=== PATIENT | female | born 1990 | race American Indian/Alaskan Native ===

== ENCOUNTER 2018-02-07 22:03 | Outpatient (CLI) | payer MEDICAID ==
[2018-02-08 00:55] VITALS: BP 104/59
--- NOTE | 2018-02-09 07:17 | Event Note ---
Date: 02/08/18 Late entry for triage visit on 02/08/18: 27 year old presented to triage complaining of leaking some "water." Patient denies vaginal bleeding. She denies regular contractions or abdominal pain. She reports active movement. Patient is well appearing, A&O, NAD. Abdomen is soft and nontender. EFM shows category 1 FHR tracing and contractions are not regular. SSE performed: no pooling, no bleeding; fern test negative. SVE 2/60/-2. Patient was found not to be in active labor. Patient was discharged home; prior to discharge reviewed with patient signs of labor and warning signs of late as well as daily movement counting. Advised pt. to follow up at [facility] this week.
== END 2018-02-08 02:17 | disposition home or self-care (01) ==
LOC: TRG 22:03
PROVIDERS: ATTEND Obstetrics & Gynecology
DX: O47.03 False labor before 37 completed weeks of gestation, third trimester (principal); Z3A.37 37 weeks gestation of pregnancy
CPT/HCPCS: 59025

== ENCOUNTER 2018-02-28 07:33 | Inpatient (IN) | payer MEDICAID ==
[2018-02-28] MEDS ORDERED: XYLOCAINE 2% INFILTRATI ONE ×2 (08:33→21:31)
[2018-02-28] MEDS ORDERED: BRETHINE SUB-Q PRN (08:33)
--- NOTE | 2018-02-28 08:45 | History and Physical Report ---
History of Present Illness Date of examination: 02/28/18 Chief complaint: Regular contractions since 02:00 today. History of present illness: 27 year old female presents to L&D in active labor. Patient reports contractions since 02:00 this morning. Pt. denies leaking of fluid or vaginal bleeding. Pt. reports active movement. Patient received care at [facility]. LMP 05/22/17. EDC 02/26/18. EGA 40 weeks, 2 days gestation. has been significant for HR HPV, anemia (supplemented with iron). labs are as follows: O+, antibody screen negative, rubella immune, HIV negative, RPR nonreactive, hepatitis B surface antigen negative, chlamydia negative, gonorrhea negative, quad screen negative, herpes serology (IgM) indeterminate, 1 hour sugar test 83, GBS negative. 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 denies: chlamydia, gonorrhea, hepatitis B, hepatitis C, herpes, HIV, syphilis Family/Genetic History: none Social history: lives with family, full code. denies: smoking, alcohol abuse, prescription drug abuse, IV drug use - Obstetrical History Expected Date of Delivery: 02/26/18 Actual Gestation: 40 Week(s) 2 Day(s) : 4 Para: 1 Hx # Term Pregnancies: 2 Number of Pregnancies: 0 Spontaneous Abortions: 0 Induced : 2 Number of Living Children: 1 Medications and Allergies Allergies Allergy/AdvReac Type Severity Reaction Status Date / Time No Known Allergies Allergy Unverified 02/07/18 22:08 Active Meds: Active Medications Ephedrine Sulfate (Ephedrine Sulfate) 10 mg IV Q2M PRN PRN Reason: Hypotension Fentanyl (Sublimaze) 100 mcg IV Q2H PRN PRN Reason: Labor Pain Lactated Ringer's (Lactated Ringers) 1,000 mls @ 125 mls/hr IV DIRECT STACIA Oxytocin/Sodium Chloride (Pitocin/Ns 20 Unit/1000ml Drip) 20 units in 1,000 mls @ 125 mls/hr IV DIRECT STACIA Lidocaine (Xylocaine 2%) 20 ml INFILTRATI ONCE ONE Stop: 02/28/18 08:34 Mineral Oil (Mineral Oil) 30 ml PO QHS PRN PRN Reason: Constipation Terbutaline Sulfate (Brethine) 0.25 mg SUB-Q ONCE PRN PRN Reason: Hyperstimulation/Hypertonicity Valacyclovir HCl (Valtrex) 1,000 mg PO QDAY STACIA Review of Systems All systems: negative (contractions since 02:00 today) - Vital Signs Vital signs: Vital Signs Pulse Pulse Ox 93 H 98 02/28/18 08:06 02/28/18 08:06 Temp Pulse Resp BP Pulse Ox 124 H 108/72 99 02/28/18 08:36 02/28/18 08:07 02/28/18 08:36 - Physical Exam Cardiovascular: Regular rate, Normal S1, Normal S2 Lungs: Positive: Clear to auscultation Abdomen: Positive: normal appearance, soft. Negative: distention, tenderness, guarding, rigidity Genitourinary (Female): Positive: normal external genitalia, normal perenium. Negative: perineal/vulvar lesions Vagina: Positive: normal moisture Uterus: Positive: enlarged. Negative: tender Anus/Rectum: Positive: normal perianal skin Extremities: Positive: normal, tenderness. Negative: edema - Obstetrical FHR: category 1 Uterine Contraction Monitor Mode: External Cervical Dilatation: 5 Cervical Effacement Percentage: 70 station: -2 Uterine Contraction Pattern: Regular Uterine Contraction Intensity: Moderate Results All other labs normal. Assessment and Plan A: at 40 weeks, 2 days gestation. Active labor. GBS negative. P: Admit. Anticipate vaginal delivery.
[2018-02-28] MEDS ORDERED: PITOCin/NS 20 UNIT/1000ML DRIP 20 UNITS/1,000 ML BAG IV SCH (09:00)
[2018-02-28 09:09] LABS: Hematocrit 31.8 % (30.3-42.9); Hemoglobin 10.5 gm/dl (10.1-14.3); Mean Corpuscular HGB Conc 33 % (30-34); Mean Corpuscular Hemoglobin 28 pg (28-32); Mean Corpuscular Volume 84 fl (79-97); Platelet Count 301 K/mm3 (140-440); Red Blood Count 3.81 M/mm3 (3.65-5.03); Red Cell Distribution Width 15.5 % (13.2-15.2)
[2018-02-28] MEDS ORDERED: VALTREX PO SCH (10:00)
[2018-02-28] MEDS ORDERED: ZOFRAN IV ONE (10:13)
[2018-02-28] MEDS: SUBLIMAZE IV PRN ×2 (10:14→12:50)
[2018-02-28] MEDS: LACTATED RINGERS 1,000 ML IV SCH ×5 (10:49→20:57)
[2018-02-28] MEDS ORDERED: NACL 0.9% 1000 ML 1,000 ML ONE (16:16)
--- NOTE | 2018-02-28 16:18 | Event Note ---
Date: 02/28/18 SVE /. Patient has refused Pitocin augmentation of labor.
[2018-02-28] MEDS ORDERED: NACL 0.9% 1000 ML 1,000 ML VG SCH (17:00)
[2018-02-28] MEDS ORDERED: NARCAN 2 MG/2 ML IV PRN (17:07)
[2018-02-28] MEDS ORDERED: fentaNYL-BUPIV 2 MCG/ML-0.125% 200 MCG/100 ML BAG EPIDURAL SCH (18:00)
[2018-02-28] MEDS ORDERED: METHERGINE IM ONE ×2 (21:30→21:31)
[2018-02-28] MEDS ORDERED: CYTOTEC PR ONE (21:30)
[2018-02-28] MEDS ORDERED: CYTOTEC ONE (21:30)
[2018-02-28] MEDS ORDERED: MILK OF MAGNESIA PO PRN (21:44)
[2018-02-28] MEDS ORDERED: ZOFRAN IV PRN (21:44)
[2018-02-28] MEDS ORDERED: LANSINOH TP PRN (21:44)
[2018-02-28] MEDS ORDERED: NORCO 5/325 PO PRN (21:44)
[2018-02-28] MEDS ORDERED: DULCOLAX PR PRN (21:44)
[2018-02-28] MEDS ORDERED: TUCKS PAD TP PRN (21:44)
[2018-02-28] MEDS ORDERED: MINERAL OIL PO PRN (22:00)
[2018-02-28] MEDS ORDERED: SODIUM CHLORIDE FLUSH SYRINGE 10 ML IV NR (22:00)
--- NOTE | 2018-02-28 22:00 | Procedure Note ---
OB Delivery Note - Delivery Date of Delivery: 02/28/18 Surgeon: DANIEL LARRY Rn Psychiatric: SATISH CUELLAR Estimated blood loss: 500cc - Vaginal Delivery presentation: vertex Delivery position: OA Intrapartum events: decreased FHT variability, mult.variable deceleratio, hemorrhage Delivery induction: AROM Delivery augmentation: rupture of membranes Delivery monitor: external FHT, external uterine, internal FHT, internal uterine Route of delivery: vacuum extraction Indicators for instrumentation: maternal exhaustion Delivery placenta: spontaneous Delivery cord: 3 umbilical vessels Episiotomy: none Delivery laceration: none Anesthesia: epidural Delivery comments: Vacuum assisted vaginal delivery of liveborn female infant performed by Dr. Larry for deep variable FHR declelerations. NICU present for delilvery. Spontaneous cry and respirations. 3 vessel cord double clamped and cut. Baby taken to warmer for further evaluation by NICU team due to vacuum delivery. No lacerations noted. hemorrhage of approximately 500 ml noted. Methergine, Cytotec 800 micrograms, and fundal massage given. Bleeding slowed. Sponge count correct. Vaginal sweep negative.
[2018-02-28 22:13] LABS: Hematocrit 34.9 % (30.3-42.9); Hemoglobin 10.8 gm/dl (10.1-14.3)
[2018-02-28] MEDS ORDERED: D5LR 1,000 ML IV SCH (23:00)
[2018-02-28] MEDS ORDERED: D5LR 1,000 ML IV ONE (23:04)
[2018-02-28 23:41] LABS: Creatine Kinase MB 1.2 ng/mL (0.0-4.0)
[2018-02-28 23:42] LABS: Alanine Aminotransferase 9 units/L (7-56); Albumin 2.8 g/dL (3.9-5); BUN/Creatinine Ratio 8; Blood Urea Nitrogen 4 mg/dL (7-17); Calcium 8.3 mg/dL (8.4-10.2); Hemolysis Index 6
--- NOTE | 2018-02-28 23:45 | Event Note ---
Date: 02/28/18 About 30 minutes after delivery patient reported shortness of breath, feeling "weird," dizziness, and heart racing. Patient denied chest pain or cough. Patient had received Brethine prior to delivery; during hemorrhage patient received cytotec and Methergine. Pulse was elevated 120s-140s. BPs normal. Afebrile. Lungs CTAB. CXR, EKG, cardiac enzymes, d-dimer, thyroid labs, CMP/CBC, stat H&H done. Respiratory therapist and hospitalist to see the patient. Discussed patient's symptoms, exam findngs, and interventions taken discussed with Dr. King and with hospitalist. Hospitalist came to see/ evaluate patient. Random blood sugar was 69; juice/sprite given. Notified hospitalist's WRINGER AND SETTER of elevated d-dimer. She states she will pass ths on to hospitalist right away.
--- NOTE | 2018-03-01 02:57 | Cat Scan Report ---
FINAL REPORT EXAM: CT ANGIO CHEST HISTORY: POST WITH DYSPNEA AND TACHYCARDIA R/O PE TECHNIQUE: CT evaluations performed of the chest following IV contrast administration time for evaluation of the pulmonary arterial system. Coronal and sagittal imaging was also provided for interpretation. PRIORS: None. FINDINGS: CT evaluation of the pulmonary arterial system reveals no central filling defects. The subsegmental branches are not well opacified, specifically the left lower lobe branches. On the axial images, there are suggested filling defects in the left lower lobe, posterior medial segment (axial image 50 [id number]; coronal image 90 2-94) however there is distal opacification of the vessel and on the oblique MIPS images there is a linear, band like artifact suggested (oblique MIP image 31). Expected appearance of the breast parenchyma. The pulmonary parenchyma is without evidence of interstitial or airspace disease. The heart and great vessels,pleura and diaphragms are unremarkable. There is no evidence of mediastinal, hilar, or axillary lymphadenopathy. The visualized upper abdominal viscera and osseous structures are unremarkable. Punctate air in the thecal sac, query recent epidural. IMPRESSION: No central pulmonary emboli or acute cardiopulmonary process. Evaluation of the distal subsegmental branches is limited. Hypo attenuation in the left lower lobe pulmonary artery medial segment is felt to represent artifact.
[2018-03-01] MEDS: MOTRIN PO SCH ×5 (04:50→23:08)
[2018-03-01 10:31] LABS: Hematocrit 27.2 % (30.3-42.9); Hemoglobin 8.8 gm/dl (10.1-14.3)
--- NOTE | 2018-03-01 10:53 | Consultation ---
REQUESTING PHYSICIAN: Dr. Marianne King. HISTORY OF PRESENT ILLNESS: Very pale. REASON FOR CONSULTATION: A patient having shortness of breath and tachycardia. HISTORY OF PRESENT ILLNESS: The patient is a 27-year-old female who delivered a baby by suctioning through the vaginal delivery and some hours after delivery, the patient became tachycardic and short of breath and was evaluated by the tube mounter and the bradder and they noted that the patient's pulse was running up to 120-140 and the patient's blood pressure was about 130/70-80 and the request was for the hospitalist to see the patient after the patient was being evaluated by the tube mounter. There was no history of chest pain, no history of fever or chills; however, the patient was anxious and having some shivering. There was also no history of excessive vaginal bleeding and no history of nausea or vomiting. PAST MEDICAL HISTORY: Unremarkable. PAST SURGICAL HISTORY: Pertinent for knee surgery. FAMILY HISTORY: Noncontributory. SOCIAL HISTORY: The patient lives with family. Does not smoke, does not drink alcohol, and does not use illicit drugs. MEDICATIONS: The patient currently on admission is on IV oxytocin. Also, the patient is on IV ephedrine and IV fentanyl for pain as well as hydrocodone/APAP, ibuprofen and also magnesium hydroxide. The patient is also on misoprostol orally and IV Zosyn as well as Valtrex by mouth. ALLERGIES: There are no known drug allergies. REVIEW OF SYSTEMS: CONSTITUTIONAL: There is no fever, no chills, no diaphoresis. HEENT: There is no headache or sore throat. CARDIOVASCULAR SYSTEM: There is no chest pain, but there is palpitation. RESPIRATORY SYSTEM: There is shortness of breath and no cough. GASTROINTESTINAL SYSTEM: There is no nausea, no vomiting, no abdominal pain, diarrhea or constipation. NEUROLOGICAL SYSTEM: There is no numbness, no dizziness, no altered mental status. MUSCULOSKELETAL SYSTEM: There is no joint pain or swelling. DERMATOLOGICAL SYSTEM: There is no skin rash or itching. GENITOURINARY SYSTEM: There is no dysuria, hematuria, or flank pain. Rest of the system review is normal. PHYSICAL EXAMINATION: GENERAL: At the time of exam, the patient was found to be alert, oriented x 3, and not in acute distress. VITAL SIGNS: Show temperature to be normal, pulse of about 101-104, respirations of about 15, and blood pressure of about 130/80 with normal O2 sats. HEENT: Shows pupils to be equal, round, and reactive to light and accommodating. Extraocular muscles are intact. NECK: Supple with no JVD or carotid bruit. CARDIOVASCULAR SYSTEM: Shows normal first and second heart sounds with no gallops or murmurs. RESPIRATORY SYSTEM: Shows good air entry on both sides of the lung with no abnormal breath sounds. GASTROINTESTINAL SYSTEM: Shows abdomen to be full, soft, nontender with no organomegaly or rigidity. NEUROLOGICAL: Shows no focal deficit. MUSCULOSKELETAL SYSTEM: Shows no joint swelling or tenderness. DERMATOLOGICAL SYSTEM: Shows no skin rash. GENITOURINARY SYSTEM: Showing no costovertebral angle tenderness. PERTINENT LABORATORY DATA AND IMAGING STUDIES: The patient had cardiac enzymes done that came back normal. The patient had H and H done that came back normal. The patient's D-dimer was high with a value of 1910.61. The patient's chemistry was unremarkable except for low albumin level of 2.8. The patient had a chest x-ray done that came back normal and also the patient had CT angiogram of the chest done because of elevated D-dimer, tachycardia, shortness of breath and period and CT angio shows no pulmonary embolism. DIAGNOSES: anxiety and also tachycardia due to the administration of ephedrine and oxytocin. PLAN: The patient will be followed with the current obstetrical treatment going on and the patient's vital signs will be monitored. JOB# [id number] OCN/NTS
--- NOTE | 2018-03-01 13:29 | Event Note ---
Date: 03/01/18 Pt seen and examined reviewed medical records Likely anxiety CTA negative for PE will cont current Mx and plan
--- NOTE | 2018-03-01 14:10 | Progress Note ---
Assessment and Plan A: day 1 S/P VAVD. P: Iron supplements BID ordered. Subjective - Subjective Date of service: 03/01/18 Principal diagnosis: day 1 S/P VAVD. Interval history: day 1 S/P VAVD. Patient is doing well. She reports small amount of lochia. She is voiding without difficulty. Ambulating well and tolerating a regular diet. Patient denies headache, chest pain, cough, shortness of breath, weakness, dizziness, abdominal pain, nausea or vomiting, back pain, leg pain, heavy bleeding, or depression. Patient reports: appetite normal, voiding normally, pain well controlled, flatus , ambulating normally : doing well Objective - Vital Signs Latest vital signs: Vital Signs Temp Pulse Resp BP BP Pulse Ox 03/01/18 09:11 98.4 F 77 22 104/57 100 03/01/18 07:19 98.6 F 70 18 96/55 99 03/01/18 04:38 99.1 F 81 16 105/61 97 03/01/18 03:22 98.4 F 95 H 18 106/55 100 03/01/18 01:58 82 102/60 03/01/18 01:28 89 103/59 03/01/18 01:00 89 109/62 03/01/18 00:45 79 109/61 03/01/18 00:30 88 107/57 03/01/18 00:16 91 H 113/60 03/01/18 00:08 99.4 F 14 02/28/18 23:45 93 H 112/56 02/28/18 23:31 118 H 113/55 02/28/18 23:17 104 H 100 02/28/18 23:16 94 H 128/59 02/28/18 23:12 98 H 100 02/28/18 23:07 112 H 100 02/28/18 23:02 102 H 100 02/28/18 23:00 96 H 108/55 02/28/18 22:57 102 H 100 02/28/18 22:52 94 H 100 02/28/18 22:47 98 H 100 02/28/18 22:45 96 H 107/51 02/28/18 22:42 102 H 100 02/28/18 22:37 104 H 100 02/28/18 22:36 101 H 104/55 02/28/18 22:32 107 H 100 02/28/18 22:31 106 H 91 02/28/18 22:25 110/58 02/28/18 22:24 96 H 194/153 02/28/18 22:21 123 H 100 02/28/18 22:16 144 H 99 02/28/18 22:11 155 H 131/86 100 02/28/18 22:10 76 L 02/28/18 22:00 97.6 F 02/28/18 21:45 139 H 119/58 02/28/18 21:39 148 H 100 02/28/18 21:34 144 H 100 02/28/18 21:30 98.0 F 02/28/18 21:29 137 H 93/50 100 02/28/18 21:15 146 H 98/64 02/28/18 21:00 97.9 F 16 02/28/18 20:59 117 H 119/56 02/28/18 20:56 83 107/59 02/28/18 20:53 93 H 95/52 02/28/18 20:50 102 H 106/52 02/28/18 20:47 121 H 92/44 02/28/18 20:43 96 H 97/61 02/28/18 20:41 109 H 92/55 02/28/18 20:37 99 H 107/58 02/28/18 20:34 79 110/60 02/28/18 20:31 83 114/56 02/28/18 20:28 97 H 101/55 02/28/18 20:25 96 H 95/54 02/28/18 20:23 77 101/58 02/28/18 20:20 86 105/56 02/28/18 20:17 81 112/60 02/28/18 20:14 104 H 92/51 02/28/18 20:10 98 H 91/54 02/28/18 20:08 117 H 89/45 02/28/18 20:04 101 H 87/48 02/28/18 19:57 81 86/47 02/28/18 19:46 72 93/50 02/28/18 19:36 84 99/55 02/28/18 19:26 88 83/40 02/28/18 19:20 65 83/45 02/28/18 19:18 98.5 F 18 02/28/18 18:40 67 98/56 02/28/18 17:14 78 103/56 02/28/18 17:11 74 114/57 02/28/18 17:09 123 H 69/34 02/28/18 17:05 130 H 106/60 02/28/18 17:02 88 115/64 100 02/28/18 16:59 89 105/65 02/28/18 16:57 91 H 100 02/28/18 16:52 88 100 02/28/18 16:47 97 H 100 02/28/18 16:46 94 H 107/55 02/28/18 15:56 93 H 112/76 02/28/18 15:16 71 102/59 02/28/18 14:56 80 99 02/28/18 14:51 74 100 02/28/18 14:46 80 100 02/28/18 14:41 89 99 02/28/18 14:36 75 116/71 98 02/28/18 14:31 69 99 02/28/18 14:26 74 99 02/28/18 14:21 71 99 02/28/18 14:16 80 100 02/28/18 14:11 98 H 99 Intake and Output 02/28/18 03/01/18 03/01/18 23:59 07:59 15:59 Intake Total 689.583 Output Total 1450 1100 Balance -760.417 -1100 Intake: IV 689.583 Lactated Ringers 1,000 ml 689.583 @ 125 mls/hr IV DIRECT STACIA Rx#:[id number] Output: Urine 1450 1100 Indwelling Catheter 850 Void 600 1100 Other: Total, Output Amount 600 500 # Voids Void 1 Estimated Blood Loss 550 - Exam Cardiovascular: Present: Regular rate, Normal S1, Normal S2 Lungs: Present: Clear to auscultation Abdomen: Present: normal appearance, soft, normal bowel sounds. Absent: distention, tenderness, guarding, rigidity Uterus: Present: normal, firm, fundal height below umbilicus. Absent: bogginess , tenderness Extremities: Present: normal. Absent: tenderness, edema - Labs Labs: Abnormal lab results 02/28/18 02/28/18 02/28/18 Range/Units 22:46 23:16 23:16 Hgb (10.1-14.3) gm/dl Hct (30.3-42.9) % D-Dimer 1910.61 H (0-234) ng/mlDDU Carbon Dioxide 17 L (22-30) mmol/L BUN 4 L (7-17) mg/dL Creatinine 0.5 L (0.7-1.2) mg/dL Glucose 106 H (65-100) mg/dL POC Glucose 69 L (70-105) Calcium 8.3 L (8.4-10.2) mg/dL Alkaline Phosphatase 163 H (35-129) units/L Total Protein 6.2 L (6.3-8.2) g/dL Albumin 2.8 L (3.9-5) g/dL 03/01/18 Range/Units 10:19 Hgb 8.8 L (10.1-14.3) gm/dl Hct 27.2 L D (30.3-42.9) % D-Dimer (0-234) ng/mlDDU Carbon Dioxide (22-30) mmol/L BUN (7-17) mg/dL Creatinine (0.7-1.2) mg/dL Glucose (65-100) mg/dL POC Glucose (70-105) Calcium (8.4-10.2) mg/dL Alkaline Phosphatase (35-129) units/L Total Protein (6.3-8.2) g/dL Albumin (3.9-5) g/dL
[2018-03-01] MEDS: FEOSOL PO SCH ×2 (21:14→23:08)
[2018-03-02] MEDS: MOTRIN PO SCH ×3 (06:14→18:19)
[2018-03-02] MEDS ORDERED: BOOSTRIX IM ONE (06:25)
--- NOTE | 2018-03-02 07:39 | Progress Note ---
Assessment and Plan A: day 2 S/P VAVD. Anemia. P: Discharge patient home this afternoon when baby is able to go. discharge instructions and warning signs discussed in detail with patient. Advised pt. to continue taking her iron suppplements twice per day at home ( patient states she has plenty of these at home). Advised pt. to avoid IC, avoid lifting and heavy housework, avoid driving. Advised pt. to follow up at [facility] in 6 weeks for visit and contraception. Patient voiced understanding of all instructions. Subjective - Subjective Date of service: 03/02/18 Principal diagnosis: day 2 S/P VAVD. Interval history: day 2 S/P VAVD. Patient is doing well. She desires discharge today. She reports small amount of lochia. She is voiding without difficulty. Ambulating well and tolerating a regular diet. Patient denies headache, chest pain, cough, shortness of breath, weakness, dizziness, abdominal pain, nausea or vomiting, back pain, leg pain, heavy bleeding, or depression. Patient reports: appetite normal, voiding normally, pain well controlled, flatus , ambulating normally : doing well Objective - Vital Signs Latest vital signs: Vital Signs Temp Pulse Resp BP Pulse Ox 03/02/18 00:15 98.6 F 67 16 99/64 99 03/01/18 16:45 97.5 F L 70 20 98/46 98 03/01/18 09:11 98.4 F 77 22 104/57 100 - Exam Cardiovascular: Present: Regular rate, Normal S1, Normal S2 Lungs: Present: Clear to auscultation Abdomen: Present: normal appearance, soft. Absent: distention, tenderness, guarding, rigidity Uterus: Present: normal, firm, fundal height below umbilicus. Absent: bogginess , tenderness Extremities: Present: normal. Absent: tenderness, edema - Labs Labs: Abnormal lab results 02/28/18 03/01/18 Range/Units 22:46 10:19 Hgb 8.8 L (10.1-14.3) gm/dl Hct 27.2 L D (30.3-42.9) % POC Glucose 69 L (70-105)
--- NOTE | 2018-03-02 08:23 | XRay Report ---
FINAL REPORT PROCEDURE: Chest. TECHNIQUE: Chest radiograph anteroposterior view. CPT 83952 HISTORY: Shortness of breath. COMPARISON: No prior studies are available for comparison. FINDINGS: The heart and mediastinum appear normal. The lungs are clear and well expanded. There are no pleural effusions. The soft tissues and regional skeleton are unremarkable. IMPRESSION: Normal study.
[2018-03-02 09:05] LABS: Hematocrit 25.4 % (30.3-42.9); Hemoglobin 8.5 gm/dl (10.1-14.3); Mean Corpuscular HGB Conc 33 % (30-34); Mean Corpuscular Hemoglobin 28 pg (28-32); Mean Corpuscular Volume 84 fl (79-97); Platelet Count 303 K/mm3 (140-440); Red Blood Count 3.02 M/mm3 (3.65-5.03); Red Cell Distribution Width 15.4 % (13.2-15.2)
--- NOTE | 2018-03-02 10:16 | Progress Note ---
Assessment and Plan - Patient Problems (1) Status post vacuum-assisted vaginal delivery Current Visit: Yes Status: Acute Plan to address problem: PPD 2 - stable Discharge to home today Follow up at [facility] in 6 weeks for exam (2) Anemia in puerperium, baby delivered during current episode of care Current Visit: Yes Status: Acute Plan to address problem: Asymptomatic Continue iron therapy Subjective - Subjective Date of service: 03/02/18 Principal diagnosis: PPD #2, s/p VAVD Patient reports: appetite normal, voiding normally, pain well controlled, ambulating normally, no dizzy ambulation Chapman: doing well, bottle feeding Objective - Vital Signs Latest vital signs: Vital Signs Temp Pulse Resp BP BP Pulse Ox 03/02/18 07:45 98.1 F 61 18 101/63 03/02/18 00:15 98.6 F 67 16 99/64 99 03/01/18 16:45 97.5 F L 70 20 98/46 98 Intake and Output 03/01/18 03/02/18 03/02/18 23:59 07:59 15:59 Intake Total 360 Balance 360 Intake: Oral 360 Other: Total, Intake Amount 360 - Exam Abdomen: Present: normal appearance, soft Vulva: both: normal Uterus: Present: normal, firm, fundal height below umbilicus Extremities: Present: normal Comments: scant lochia - Labs Labs: Abnormal lab results 03/01/18 03/02/18 Range/Units 10:19 08:32 RBC 3.02 L (3.65-5.03) M/mm3 Hgb 8.8 L 8.5 L (10.1-14.3) gm/dl Hct 27.2 L D 25.4 L (30.3-42.9) % RDW 15.4 H (13.2-15.2) %
--- NOTE | 2018-03-02 10:20 | Discharge Summary ---
Providers - Providers Date of Admission: 02/28/18 07:34 Date of discharge: 03/02/18 Attending physician: PAO OWENS MD 02/28/18 22:26 Consult to Physician [CONS] Stat Comment: Consulting Provider: GLEN THORNTON Physician Instructions: Reason For Exam: shortness of breath Primary care physician: PAO OWENS MD Hospitalization Reason for admission: active labor, IUP at term Delivery: vacuum extraction Episiotomy: none Laceration: none Other procedures: none complications: none Discharge diagnosis: IUP at term delivered baby: female Hospital course: Uncomplicated Condition at discharge: Stable Disposition: DC-01 TO HOME OR SELFCARE - Discharge Diagnoses (1) Status post vacuum-assisted vaginal delivery Status: Acute (2) Anemia in puerperium, baby delivered during current episode of care Status: Acute Comment: Asymptomatic Continue iron therapy Plan - Discharge Medications Prescriptions: Ferrous Sulfate [Feosol 325 MG tab] 325 mg PO BID #60 tablet - Provider Discharge Summary Activity: routine, no sex for 6 weeks, no heavy lifting 4 weeks, no strenuous exercise Diet: routine Instructions: routine Additional instructions: [] Smoking cessation referral if applicable(refer to patient education folder for contact #) [] Refer to [facility] Booklet Call your doctor immediately for: * Fever > 100.5 * Heavy vaginal bleeding ( >1 pad per hour) * Severe persistent headache * Shortness of breath * Reddened, hot, painful area to leg or breast * Drainage or odor from incision. * Keep incision clean and dry at all times and follow doctor's instructions regarding bathing/showering - Follow up plan Follow up: PAO OWENS MD [Primary Care Provider] - 6 Weeks (Follow up at [facility] in 6 weeks for exam)
[2018-03-02] MEDS: FEOSOL PO SCH (10:36)
--- NOTE | 2018-03-02 11:37 | Progress Note ---
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 Subjective Date of service: 03/02/18 Principal diagnosis: PPD #2, s/p VAVD Interval history: Pt seen and examined No acute event o/n plan to d/c today, ambulating in the room w/o any distress with all dressed up Objective - Constitutional Vitals: Vital Signs - 12hr 03/02/18 03/02/18 00:15 07:45 Temperature 98.6 F 98.1 F Pulse Rate 67 61 Respiratory 16 18 Rate Blood Pressure 99/64 Blood Pressure 101/63 [Left] O2 Sat by Pulse 99 Oximetry General appearance: Present: no acute distress, obese - EENT Eyes: PERRL, EOM intact ENT: hearing intact, clear oral mucosa Ears: bilateral: normal - Neck Neck: supple, normal ROM - Respiratory Respiratory effort: normal Respiratory: bilateral: CTA - Cardiovascular Rhythm: regular Heart Sounds: Present: S1 & S2. Absent: gallop, rub Extremities: pulses intact, No edema, normal color, Full ROM - Gastrointestinal General gastrointestinal: Present: soft, non-tender, non-distended, normal bowel sounds - Integumentary Integumentary: clear, warm, dry - Musculoskeletal Musculoskeletal: 1, strength equal bilaterally - Neurologic Neurologic: moves all extremities - Psychiatric Psychiatric: memory intact, appropriate mood/affect, intact judgment & insight - Labs CBC & Chem 7: 03/02/18 08:32 02/28/18 23:16 Labs: Abnormal lab results 03/02/18 Range/Units 08:32 RBC 3.02 L (3.65-5.03) M/mm3 Hgb 8.5 L (10.1-14.3) gm/dl Hct 25.4 L (30.3-42.9) % RDW 15.4 H (13.2-15.2) %
[2018-03-02 16:05] VITALS: BP 101/56
== END 2018-03-02 19:15 | disposition home or self-care (01) | DRG 774 ==
LOC: TRG 07:33 → LD 07:34 → TRG 07:34 → OB 03-01 02:10
PROVIDERS: ADMIT Obstetrics & Gynecology; ATTEND Obstetrics & Gynecology
PROC: 10D07Z6 Extraction of Products of Conception, Vacuum, Via Natural or Artificial Opening (ICD-10-PCS; principal; 2018-02-28)
PROC: 10907ZC Drainage of Amniotic Fluid, Therapeutic from Products of Conception, Via Natural or Artificial Opening (ICD-10-PCS; 2018-02-28)
PROC: 3E0R3BZ Introduction of Anesthetic Agent into Spinal Canal, Percutaneous Approach (ICD-10-PCS; 2018-02-28)
PROC: 00HU33Z Insertion of Infusion Device into Spinal Canal, Percutaneous Approach (ICD-10-PCS; 2018-02-28)
PROC: 10H07YZ Insertion of Other Device into Products of Conception, Via Natural or Artificial Opening (ICD-10-PCS; 2018-02-28)
PROC: 3E0234Z Introduction of Serum, Toxoid and Vaccine into Muscle, Percutaneous Approach (ICD-10-PCS; 2018-03-02)
DX: O76 Abnormality in fetal heart rate and rhythm complicating labor and delivery (principal); O72.1 Other immediate postpartum hemorrhage; Z37.0 Single live birth; Z3A.40 40 weeks gestation of pregnancy; Z23 Encounter for immunization; O90.81 Anemia of the puerperium; D64.9 Anemia, unspecified; O99.214 Obesity complicating childbirth; E66.9 Obesity, unspecified; Z68.35 Body mass index [BMI] 35.0-35.9, adult; O99.345 Other mental disorders complicating the puerperium; F41.9 Anxiety disorder, unspecified
CPT/HCPCS: 36415; 71045; 71275; 80053; 82550; 82553; 82962; 84439; 84443; 84484; 85014; 85018; 85027; 85379; 86592; 86706; 86803; 86850; 86900; 86901; 90471; 93005; 93010; J2210; J2405; J2590; J3010; J3105; J7030; J7120; J7121; Q9967